=== PATIENT | female | born 1980 | race Two or more races ===

== ENCOUNTER 2018-11-07 19:04 | Emergency (ER) | payer MEDICAID ==
[~2018-11-07] VITALS: Ht 152.4 cm; Wt 67.1 kg
[2018-11-07 19:08] VITALS: Ht 152.4 cm; Wt 67.1 kg
[2018-11-07 23:21] VITALS: BP 101/79
== END 2018-11-07 23:21 | disposition home or self-care (01) ==
LOC: ED 19:04
DX: M54.5 Low back pain (principal); Z88.0 Allergy status to penicillin; Z98.890 Other specified postprocedural states; Z90.89 Acquired absence of other organs
CPT/HCPCS: J1885

== ENCOUNTER 2019-03-13 03:41 | Emergency (ER) | payer MEDICAID ==
[~2019-03-13] VITALS: Ht 152.4 cm; Wt 65.3 kg
[2019-03-13 03:47] VITALS: Ht 152.4 cm; Wt 65.3 kg
[2019-03-13 07:15] VITALS: BP 110/63
== END 2019-03-13 07:15 | disposition home or self-care (01) ==
LOC: ED 03:41
DX: J06.9 Acute upper respiratory infection, unspecified (principal); Z98.890 Other specified postprocedural states; Z88.0 Allergy status to penicillin
CPT/HCPCS: 87804

== ENCOUNTER 2019-08-14 04:43 | Emergency (ER) | payer MEDICAID ==
[~2019-08-14] VITALS: Ht 152.4 cm; Wt 59.9 kg
[2019-08-14 04:48] VITALS: BP 103/74
== END 2019-08-14 06:23 | disposition home or self-care (01) ==
LOC: ED 04:43
DX: S46.911A Strain of unspecified muscle, fascia and tendon at shoulder and upper arm level, right arm, initial encounter (principal); X58.XXXA Exposure to other specified factors, initial encounter; Y93.89 Activity, other specified; Y92.89 Other specified places as the place of occurrence of the external cause; Y99.8 Other external cause status
CPT/HCPCS: J1885